=== PATIENT | female | born 1975 | race Caucasian/White ===

== ENCOUNTER 2016-06-22 15:16 | Emergency (ER) | payer BC, MEDICAID ==
[~2016-06-22] VITALS: Ht 152.4 cm; Wt 61.2 kg
[~2016-06-22 15:16] MED LIST: HYDR-4246 PO; PHEN-778 PO; SULF1TAB42 PO
[2016-06-22 15:18] VITALS: RESP 20; TEMP 99.1; Ht 152.4 cm; Wt 61.2 kg
[2016-06-22] MEDS ORDERED: RANI150T12 PO (15:37)
[2016-06-22] MEDS ORDERED: CALC-809 PO (15:37)
[2016-06-22 15:50] LABS: BLOOD, URINE NEGATIVE (NEGATIVE); COLOR,URINE YELLOW (YELLOW); LEUKOCYTE ESTERASE ,URINE NEGATIVE (NEGATIVE); NITRITE,URINE NEGATIVE (NEGATIVE); UROBILINOGEN,URINE 0.2 EU/DL (NORMAL)
[2016-06-22 16:00] LABS: BASOPHILS % (AUTO) 0.1 % (0-2); EOSINOPHILS # (AUTO) 0.2 T/MM3 (0-0.5); EOSINOPHILS % (AUTO) 2.1 % (0-4); HCT - HEMATOCRIT 35.8 % (36-46); HGB - HEMOGLOBIN 12.4 GM/DL (12-16); IMMATURE GRANULOCYTE # (AUTO) 0.05 T/MM3 (0.00-0.03); IMMATURE GRANULOCYTE % (AUTO) 0.5 % (0.0-0.5); LYMPHOCYTES # (AUTO) 1.6 T/MM3 (1-4.8); MEAN CORPUSCULAR HGB 35.5 UUG (26-34); MEAN CORPUSCULAR HGB CONC(MCHC 34.6 GM/DL (31-37); MEAN CORPUSCULAR VOLUME 102.6 UM3 (80-100); MEAN PLATELET VOLUME 9.5 UM3 (9.4-12.4); MONOCYTES # (AUTO) 0.8 T/MM3 (0-0.8); MONOCYTES % (AUTO) 8.4 % (0-9.0); NEUTROPHILS #(AUTO)-ABSOLUTE 6.5 T/MM3 (1.8-7.7); NEUTROPHILS % (AUTO) 70.9 % (33-66); RED BLOOD COUNT 3.49 M/MM3 (4.00-5.20); WBC - WHITE BLOOD COUNT 9.1 T/MM3 (4.5-11.0)
[2016-06-22 16:05] LABS: ALBUMIN 3.3 G/DL (3.5-5.0); ALKALINE PHOSPHATASE 165 U/L (38-126); ALT (SGPT) 26 U/L (9-52); ANION GAP 12 MEQ/L (5-15); AST (SGOT) 19 U/L (14-36); BUN/CREATININE RATIO 12 RATIO (6-26); CALCIUM 9.4 MG/DL (8.4-10.2); CHLORIDE 110 MEQ/L (98-107); CO2 - CARBON DIOXIDE 20 MEQ/L (22-30); CREATININE 0.5 MG/DL (0.7-1.2); GLOMERULAR FILTRATION RATE 136; GLUCOSE 105 MG/DL (65-110); POTASSIUM 3.9 MEQ/L (3.6-5); SODIUM 142 MEQ/L (134-144); TOTAL PROTEIN 6.5 G/DL (6.3-8.2)
--- NOTE | 2016-06-22 16:25 | NUR ---
PROVIDER DR BARRAGAN TO BEDSIDE TO DISCUSS POC
--- NOTE | 2016-06-22 16:39 | ERPDOC ---
Departure Disposition Decision Date: Jun 22, 2016 Disposition Decision Time: 16:46 Disposition: 01 DISCHARGED HOME, SELF-CARE Impression Impression Impression: Primary Impression: Additional Impression: Ocular migraine Severity: Moderate Condition: Improved Seen By: Physician only Referrals: ZOE PARDO MD (PCP) Patient Instructions: Ocular Migraine (ED) Problems/Meds/Labs Reviewed?: Yes Medications reviewed and manag: Yes Additional Instructions: Please go to labor and delivery to have a nonstress test completed at this time. Call for an appointment with your OB provider to be set up with in the next 72 hours. Please return if symptoms recur and you cannot get hold of your OB provider. Follow up care ordered?: Yes Mental Status: Alert, Oriented HPI - General Medical General Chief Complaint: Related Problems Stated Complaint: /NUMBNESS AND VISION ISSUES Time Seen by Provider: 15:37 HPI - General Medical Initial Comments 40-year-old female presents at 35-3/7 weeks gestation. Patient had left- sided tongue numbness and facial numbness which then went to her arm. This is the second time in her life that she has had this and both times were all she was . She has had an appointment with neurology, but did not realize that it was set for the third and missed it. She has had some resolution of symptoms on entering the ED, and at the time of the interview, symptoms had resolved. She has no headache, no fever or chills. Has noticed some swelling in her legs. No dysuria or urgency beyond normal for at this time. She's had no significant cramping or pain and no abnormal vaginal discharge. Allergies: Coded Allergies: Penicillins (Verified Allergy, Mild, ITCHING,RASH, 06/22/16) Past History Past Medical History Female: UTI, other Surgical History Reproductive/: other Family History Family History: Negative Vaccines Hx Influenza Vaccination: No Hx Pneumococcal Vaccination: No Social History Smoking Status: Never smoker Substance Use Type: does not use Record Review Pertinent history updated: Yes Review of Systems Constitutional Constitutional: weight gain, DENIES: chills, dizziness, fever, syncope, weakness, weight loss Female: see HPI : see HPI Musculoskeletal General: see HPI Neurological General: see HPI All other Systems All Other Systems: Reviewed and Negative Physical Exam General General Nourishment: well nourished, well developed, appears stated age, no acute distress General Body Habitus: well groomed Vitals and Pain First Documented Vital Signs Date Time Temp Pulse Resp B/P Pulse Ox O2 Delivery O2 Flow Rate FiO2 06/22/16 15:18 99.1 95 20 135/68 100 Room Air Weight: Kilograms: 61.200 Height (feet): 5 Height (inches): 0 Triage Pain Scale: Normal Exams: Head: Normocephalic w/o trauma Eyes: Pupils are PERRLA w/ EOMI, No scleral icterus, irritation, or foreign bodies noted Chest/Resp: Clear all cruz, with good airflow, and symmetry bilaterally CV: Regular rate and rhythm, without murmur or gallop, Pulses 2+ all extremities, capillary refill, <2 seconds all ext., no pedal edema noted Abdomen: Bowel sounds positive, soft, non-tender, non-distended, no hepatosplenomegaly, masses or bruits noted Neurologic: Patient is alert, and oriented, cranial nerves, motor/sensory/ cerebellar, exams w/o gross deficits, to observation Psychiatric: Patient exhibits, appropriate attention, emotion and affect Differential Diagnoses Considering: Encephalitis, Hypo/Hyperglycemia, Intracranial Hemorrhage, Meningitis, Metabolic, Poisoning/Accidental OD, Psychosis, Seizure, Other ( migraine, preeclampsia) Progress Results/Orders Orders Procedure Category Date Status Time Ua, Dip Wreflex LAB 06/22/16 Complete Microsc & Artist Model 15:37 Cbc W/Auto LAB 06/22/16 Complete Diff-Reflex Manual Cmp - Comprehensive LAB 06/22/16 Complete Metabolic Uric Acid LAB 06/22/16 Logged Lab Results Laboratory Tests Test 06/22/16 15:40 06/22/16 15:51 Urine Collection Type Voided-not cc-midstr Urine Color Yellow Urine Turbidity Clear Urine pH 6.5 Urine Specific [place] 1.025 Urine Protein Trace Urine Glucose (UA) Negative Urine Ketones Negative Urine Blood Negative Urine Nitrite Negative Urine Bilirubin Negative Urine Urobilinogen 0.2EU/DL Urine Leukocyte Esterase Negative Urinalysis Comment Microscopic not ind. White Blood Count 9.1T/MM3 Red Blood Count 3.49M/MM3 Hemoglobin 12.4GM/DL Hematocrit 35.8% Mean Corpuscular Volume 102.6UM3 Mean Corpuscular Hemoglobin 35.5UUG Mean Corpuscular Hemoglobin Concent 34.6GM/DL RDW Standard Deviation 47.2FL Platelet Count 232T/MM3 Mean Platelet Volume 9.5UM3 Immature Granulocyte % (Auto) 0.5% Neutrophils (%) (Auto) 70.9% Lymphocytes (%) (Auto) 18.0% Monocytes (%) (Auto) 8.4% Eosinophils (%) (Auto) 2.1% Basophils (%) (Auto) 0.1% Absolute Immature Granulocyte (auto 0.05T/MM3 Absolute Neutrophils (auto) 6.5T/MM3 Absolute Lymphocytes (auto) 1.6T/MM3 Absolute Monocytes (auto) 0.8T/MM3 Absolute Eosinophils (auto) 0.2T/MM3 Absolute Basophils (auto) 0.0T/MM3 Turbidity < 20 Sodium Level 142MEQ/L Potassium Level 3.9MEQ/L Chloride Level 110MEQ/L Carbon Dioxide Level 20MEQ/L Anion Gap 12MEQ/L Blood Urea Nitrogen 6.0MG/DL Creatinine 0.5MG/DL Glomerular Filtration Rate Calc 136 BUN/Creatinine Ratio 12RATIO Glucose Level 105MG/DL Calculated Osmolality 271MOSM/KG Calcium Level 9.4MG/DL Total Bilirubin 0.40MG/DL Icterus Index < 2 Aspartate Amino Transf (AST/SGOT) 19U/L Alanine Aminotransferase (ALT/SGPT) 26U/L Alkaline Phosphatase 165U/L Total Protein 6.5G/DL Albumin 3.3G/DL Globulin 3.2G/DL Albumin/Globulin Ratio 1.0RATIO Chemistry Specimen Hemolysis < 15 Progress Progress Patient's symptoms essentially resolved at the time she was seen, and had fully resolved within a few minutes. I called and spoke with Dr. Martinez, who is covering , we discussed patient's history and symptoms. We will both agreed that CT of the head was not necessary at this time. Preeclampsia was ruled out with normal blood pressures except for blood pressure right before discharge was 141 systolic, this was while she was up moving and getting ready to go. UA had trace protein, DTRs are 3+, platelets and liver enzymes are appropriate. Uric acid is pending at this time, but will resolved prior to discharge. I do think this was an atypical migraine. I spoke with Dr. Martinez, it turns out the patient missed her appointment with Dr. Edward yesterday. Patient is going to call to get an appointment either or Tuesday. She is being discharged to maternal for nonstress test. HEVER BARRAGAN MD Jun 22, 2016 16:38
--- NOTE | 2016-06-22 17:05 | NUR ---
[facility] MATERNAL CHILD NURSE TO BEDSIDE FOR NST
--- NOTE | 2016-06-22 17:41 | NUR ---
PAIN RELIEF MEASURE WARM RICE BAG PLACED ON PATIENT'S NECK
[2016-06-22 18:05] VITALS: BP 117/75; PULSE 96; O2SAT 100
--- NOTE | 2016-06-22 18:17 | NUR ---
NST US AND TOCO MONITORS APPLIED TO PT ABDOMEN FOR NST. MONITOR APPLIED AT 1712 AND REMOVED AT 1735. STRIP IS REACTIVE FHT 140 ACCELS NOTED, MODERATE VARIABILITY. CONTRACTIONS NOTED EVERY 2.5-4.5 MINUTES, PALPATE MILD, LASTING 50-[address] MCDONALD NOTIFIED BY ED OF REACTIVE STRIP.
== END 2016-06-22 18:05 | disposition home or self-care (01) ==
LOC: ED 15:16
DX: O26.893 Other specified pregnancy related conditions, third trimester (principal); G43.809 Other migraine, not intractable, without status migrainosus; Z3A.35 35 weeks gestation of pregnancy
CPT/HCPCS: 36415; 80053; 81003; 84550; 85025

== ENCOUNTER 2016-07-09 14:17 | Observation (INO) | payer BC ==
[~2016-07-09] VITALS: Ht 152.4 cm; Wt 64.0 kg
[~2016-07-09 14:17] MED LIST changes: +CALC-809 PO; -HYDR-4246 PO; -PHEN-778 PO; +RANI150T12 PO; -SULF1TAB42 PO
--- OUTSIDE RECORDS SUMMARY | 2016-07-09 14:25 | XMS REPORT | Continuity of Care Document ---
Author Author [facility] Organization [facility] Address Unknown Phone Unavailable Care Team Providers Care Space Controller Name Role Phone ZOE PARDO MD Primary Care Physician [phone] Insurance Providers Guarantor Luigi Carrillo Address [address] [place] [address] Email DENIED TO PORTAL Payer [facility] Community Plan Policy Number [id number] Subscriber's Name Luigi Carrillo Relationship 18 Self Effective Date 15 Expiration Date 15 Payer [facility] Policy Number [id number] Subscriber's Name Gino Carrillo Relationship 01 Spouse Group Number [id number] Chief Complaint and Reason for Visit Chief Complaint Related Problems Reason for Visit Ocular migraine Problems Active Problems Medical Problem Onset Date Status Viral illness Unknown Acute Past Problems Medical Problem Onset Date Ocular migraine Unknown Unknown Medications Current Home Medications Medication Dose Units Route Directions Days Qty Instructions Start Date Calcium Carbonate (Calcium) 500 Mg Tab.chew 500 Mg Oral As Needed 06/22/16 Ranitidine Hcl (Zantac) 150 Mg Tablet 150 Mg Oral Twice A Day Take 1 tablet, by mouth, 2 times a day. 06/22/16 Social History Social History Problem Response Recorded Date/Time Onset Date Status Hx Substance Use No 06/22/2016 3:28pm Not Applicable Not Applicable Hx Alcohol Use Y OCC 06/22/2016 3:28pm Not Applicable Not Applicable Has the pt used tobacco in the last 12 months No 02/20/2015 1:32pm Not Applicable Not Applicable Tobacco Usage none 03/02/2015 7:10pm Not Applicable Not Applicable Query Response Start Date Stop Date Smoking Status Never smoker Hospital Discharge Instructions No hospital discharge instructions. Plan of Care Discharge Date 06/22/16 6:05pm Disposition 01 DISCHARGED HOME, SELF-CARE Condition at Discharge Improved Instructions/Education Provided Ocular Migraine (ED) Prescriptions See Medication Section Referrals ZOE PARDO MD Address: [address] [place] [address] Additional Instructions/Education Please go to labor and delivery to have a nonstress test completed at this time. Call for an appointment with your OB provider to be set up with in the next 72 hours. Please return if symptoms recur and you cannot get hold of your OB provider. Functional Status No functional status results. Allergies, Adverse Reactions, Alerts Allergen Type Severity Reaction Status Last Updated Penicillin Allergy Mild ITCHING,RASH Active 06/22/16 Immunizations Query Response on File Recorded Date/Time Hx Influenza Vaccination No 02/20/15 1:32pm Hx Pneumococcal Vaccination No 02/20/15 1:32pm Hx Influenza Vaccination No 02/20/15 1:32pm Influenza Vaccine Hx NOT REC'D 06/22/16 3:28pm Vital Signs Acute Vital Signs Vital Response Date/Time Temperature (Fahrenheit) 99.1 deg F (96.8 - 99.1) 06/22/2016 3:18pm Temperature (Calculated Celsius) 37.41849 degrees C (36.0 - 37.3) 06/22/2016 3:18pm Pulse Rate (adult) 96 bpm (60 - 100) 06/22/2016 6:05pm Respiratory Rate 20 breaths/min (10 - 20) 06/22/2016 3:18pm O2 Sat by Pulse Oximetry 100 % (90 - 100) 06/22/2016 6:05pm Blood Pressure 117/75 mm Hg 06/22/2016 6:05pm Height (Feet) 5 feet 06/22/2016 3:18pm Height (Inches) 0 inches 06/22/2016 3:18pm Weight (Kilograms) 61.200 kg 06/22/2016 3:18pm Body Mass Index (BMI) 26.0 06/22/2016 3:18pm Results Laboratory Results Test Name Result Units Flags Reference Collection Date/Time Result Date/ Time Comments White Blood Count 9.1 T/MM3 4.5-11.0 06/22/2016 3:06/22/2016 4: 00pm Red Blood Count 3.49 M/MM3 L 4.00-5.20 06/22/2016 3:pm 06/22/2016 4: 00pm Hemoglobin 12.4 GM/DL 12-16 06/22/2016 3:06/22/2016 4:00pm Hematocrit 35.8 % L 36-46 06/22/2016 3:06/22/2016 4:00pm Mean Corpuscular Volume 102.6 UM3 H 80-100 06/22/2016 3:06/22/2016 4:00pm Mean Corpuscular Hemoglobin 35.5 UUG H 26-34 06/22/2016 3:pm 2016 4:00pm Mean Corpuscular Hemoglobin Concent 34.6 GM/DL 31-37 06/22/2016 3:pm 06/22/2016 4:00pm RDW Standard Deviation 47.2 FL 36.9-50.2 06/22/2016 3:06/22/2016 4 :00pm Platelet Count 232 T/MM3 130-400 06/22/2016 3:06/22/2016 4:00pm Mean Platelet Volume 9.5 UM3 9.4-12.4 06/22/2016 3:06/22/2016 4: 00pm Neutrophils (%) (Auto) 70.9 % H 33-66 06/22/2016 3:06/22/2016 4: 00pm Lymphocytes (%) (Auto) 18.0 % L 23-45 06/22/2016 3:06/22/2016 4: 00pm Monocytes (%) (Auto) 8.4 % 0-9.0 06/22/2016 3:06/22/2016 4:00pm Eosinophils (%) (Auto) 2.1 % 0-4 06/22/2016 3:06/22/2016 4:00pm Basophils (%) (Auto) 0.1 % 0-2 06/22/2016 3:06/22/2016 4:00pm Immature Granulocyte % (Auto) 0.5 % 0.0-0.5 06/22/2016 3:2016 4:00pm Absolute Neutrophils (auto) 6.5 T/MM3 1.8-7.7 06/22/2016 3:51pm 2016 4:00pm Absolute Lymphocytes (auto) 1.6 T/MM3 1-4.8 06/22/2016 3:51pm 2016 4:00pm Absolute Monocytes (auto) 0.8 T/MM3 0-0.8 06/22/2016 3:51pm 06/22/2016 4:00pm Absolute Eosinophils (auto) 0.2 T/MM3 0-0.5 06/22/2016 3:51pm 2016 4:00pm Absolute Basophils (auto) 0.0 T/MM3 0-0.2 06/22/2016 3:51pm 06/22/2016 4:00pm Absolute Immature Granulocyte (auto 0.05 T/MM3 H 0.00-0.03 06/22/2016 3: 51pm 06/22/2016 4:00pm Icterus Index < 2 0-7 06/22/2016 3:51pm 06/22/2016 4:05pm Chemistry Specimen Hemolysis < 15 0-25 06/22/2016 3:51pm 06/22/2016 4 :05pm 0-25: Specimen Exhibited No Hemolysis. Turbidity < 20 0-20 06/22/2016 3:51pm 06/22/2016 4:05pm Sodium Level 142 MEQ/L 134-144 06/22/2016 3:51pm 06/22/2016 4:05pm Potassium Level 3.9 MEQ/L 3.6-5 06/22/2016 3:51pm 06/22/2016 4:05pm Chloride Level 110 MEQ/L H 98-107 06/22/2016 3:pm 06/22/2016 4:05pm Carbon Dioxide Level 20 MEQ/L L 22-30 06/22/2016 3:51pm 06/22/2016 4: 05pm Anion Gap 12 MEQ/L 5-15 06/22/2016 3:51pm 06/22/2016 4:05pm Blood Urea Nitrogen 6.0 MG/DL L 7-17 06/22/2016 3:51pm 06/22/2016 4: 05pm Creatinine 0.5 MG/DL L 0.7-1.2 06/22/2016 3:51pm 06/22/2016 4:05pm BUN/Creatinine Ratio 12 RATIO 6-26 06/22/2016 3:51pm 06/22/2016 4:05pm Glomerular Filtration Rate Calc 136 06/22/2016 3:51pm 06/22/2016 4: 05pm Glucose Level 105 MG/DL 65-110 06/22/2016 3:51pm 06/22/2016 4:05pm Calculated Osmolality 271 MOSM/KG 261-280 06/22/2016 3:51pm 06/22/2016 4:05pm Calcium Level 9.4 MG/DL 8.4-10.2 06/22/2016 3:51pm 06/22/2016 4:05pm Total Bilirubin 0.40 MG/DL 0.20-1.30 06/22/2016 3:51pm 06/22/2016 4: 05pm Alkaline Phosphatase 165 U/L H 38-126 06/22/2016 3:51pm 06/22/2016 4: 05pm Total Protein 6.5 G/DL 6.3-8.2 06/22/2016 3:51pm 06/22/2016 4:05pm Albumin 3.3 G/DL L 3.5-5.0 06/22/2016 3:51pm 06/22/2016 4:05pm Globulin 3.2 G/DL 2.4-3.6 06/22/2016 3:51pm 06/22/2016 4:05pm Albumin/Globulin Ratio 1.0 RATIO L 1.1-2.2 06/22/2016 3:51pm 06/22/2016 4:05pm Aspartate Amino Transf (AST/SGOT) 19 U/L 14-36 06/22/2016 3:51pm 2016 4:05pm Alanine Aminotransferase (ALT/SGPT) 26 U/L 9-52 06/22/2016 3:51pm 06/22 4:05pm Uric Acid 4.6 MG/DL 2.5-7.5 06/22/2016 3:48pm 06/22/2016 4:46pm Urine Collection Type VOIDED-NOT CC-MIDSTR 06/22/2016 3:40pm 2016 3:50pm Urine Color YELLOW YELLOW 06/22/2016 3:40pm 06/22/2016 3:50pm Urine Turbidity CLEAR CLEAR 06/22/2016 3:40pm 06/22/2016 3:50pm Urine Specific [place] 1.025 1.015-1.025 06/22/2016 3:40pm 2016 3:50pm Urine pH 6.5 5.0-8.0 06/22/2016 3:40pm 06/22/2016 3:50pm Urine Leukocyte Esterase NEGATIVE NEGATIVE 06/22/2016 3:40pm 2016 3:50pm Urine Nitrite NEGATIVE NEGATIVE 06/22/2016 3:40pm 06/22/2016 3:50pm Urine Protein TRACE A NEGATIVE 06/22/2016 3:40pm 06/22/2016 3:50pm Urine Glucose (UA) NEGATIVE NEGATIVE 06/22/2016 3:40pm 06/22/2016 3: 50pm Urine Ketones NEGATIVE NEGATIVE 06/22/2016 3:40pm 06/22/2016 3:50pm Urine Urobilinogen 0.2 EU/DL NORMAL 06/22/2016 3:40pm 06/22/2016 3: 50pm Urine Bilirubin NEGATIVE NEGATIVE 06/22/2016 3:40pm 06/22/2016 3: 50pm Urine Blood NEGATIVE NEGATIVE 06/22/2016 3:40pm 06/22/2016 3:50pm Urinalysis Comment MICROSCOPIC NOT IND. 06/22/2016 3:40pm 2016 3:50pm Procedures No known history of procedures. Encounters Encounter Location Arrival/Admit Date Discharge/Depart Date Attending Provider Departed Emergency Room [facility] 06/22/16 3:16pm 06/22/16 6: 05pm HEVER BARRAGAN MD Recent Diagnosis
[2016-07-09 14:49] VITALS: Ht 152.4 cm; Wt 64.0 kg
[2016-07-09] MEDS ORDERED: CALC750T4 (14:55)
[2016-07-09 15:00] VITALS: BP 120/76; PULSE 96; RESP 18; TEMP 98; O2SAT 99
--- NOTE | 2016-07-09 17:43 | PNPDOC ---
Progress Note Date 07/09/16 Pt reports feeling well. Normotensive since arrival at [facility]. CBC, AST, ALT normal, alk phos elevated. Will dismiss to continue 24 hour urine collection at home. Reviewed PIDorie lee, emergency numbers. Q&A Follow-up at appt next week, sooner prn. GEORGE ROMERO MD Jul 09, 2016 17:43
[2016-07-09 18:14] LABS: HCT - HEMATOCRIT 34.5 % (36-46); HGB - HEMOGLOBIN 11.9 GM/DL (12-16); RED BLOOD COUNT 3.38 M/MM3 (4.00-5.20); WBC - WHITE BLOOD COUNT 8.8 T/MM3 (4.5-11.0)
[2016-07-09 18:15] LABS: BASOPHILS % (AUTO) 0.1 % (0-2); EOSINOPHILS # (AUTO) 0.2 T/MM3 (0-0.5); EOSINOPHILS % (AUTO) 1.8 % (0-4); IMMATURE GRANULOCYTE # (AUTO) 0.04 T/MM3 (0.00-0.03); IMMATURE GRANULOCYTE % (AUTO) 0.5 % (0.0-0.5); LYMPHOCYTES # (AUTO) 1.7 T/MM3 (1-4.8); LYMPHOCYTES % (AUTO) 18.9 % (23-45); MEAN CORPUSCULAR HGB 35.2 UUG (26-34); MEAN CORPUSCULAR HGB CONC(MCHC 34.5 GM/DL (31-37); MEAN CORPUSCULAR VOLUME 102.2 UM3 (80-100); MEAN PLATELET VOLUME 9.8 UM3 (9.4-12.4); MONOCYTES # (AUTO) 0.7 T/MM3 (0-0.8); MONOCYTES % (AUTO) 8.2 % (0-9.0); NEUTROPHILS #(AUTO)-ABSOLUTE 6.2 T/MM3 (1.8-7.7); NEUTROPHILS % (AUTO) 70.5 % (33-66)
[2016-07-09 18:16] LABS: ANION GAP 11 MEQ/L (5-15); CHLORIDE 109 MEQ/L (98-107); CO2 - CARBON DIOXIDE 20 MEQ/L (22-30); POTASSIUM 3.8 MEQ/L (3.6-5); SODIUM 140 MEQ/L (134-144)
[2016-07-09 18:17] LABS: ALBUMIN 3.2 G/DL (3.5-5.0); ALKALINE PHOSPHATASE 199 U/L (38-126); ALT (SGPT) 30 U/L (9-52); AST (SGOT) 26 U/L (14-36); BUN/CREATININE RATIO 18 RATIO (6-26); CALCIUM 9.2 MG/DL (8.4-10.2); CREATININE 0.5 MG/DL (0.7-1.2); GLOMERULAR FILTRATION RATE 136; GLUCOSE 89 MG/DL (65-110); TOTAL PROTEIN 6.4 G/DL (6.3-8.2)
--- NOTE | 2016-07-09 18:44 | NUR ---
OUTPATIENT DISCHARGE: VSS. Pt denies pain but feeling abdm pressure with cx. Pt denies CARLISLE, visual changes or RUQ pain. Dr Edward reviews BP and labwork. Orders given to DC pt to home, continue 24hr urine collection. RN discussed and provided home instructions and 24hr urine collection. Pt verbalizes understanding to all teaching. RN escorts pt to admissions to complete paperwork.
[2016-07-10 16:09] LABS: CREATININE 0.5 MG/DL (0.7-1.2); GLOMERULAR FILTRATION RATE 136; PATIENT WEIGHT,URINE 64 KG
== END 2016-07-09 18:44 | disposition home or self-care (01) ==
LOC: MC 14:17
PROVIDERS: ADMIT Obstetrics & Gynecology; ATTEND Obstetrics & Gynecology
DX: O26.893 Other specified pregnancy related conditions, third trimester (principal); R03.0 Elevated blood-pressure reading, without diagnosis of hypertension; O09.513 Supervision of elderly primigravida, third trimester; O99.343 Other mental disorders complicating pregnancy, third trimester; F41.8 Other specified anxiety disorders; O09.893 Supervision of other high risk pregnancies, third trimester; Z3A.37 37 weeks gestation of pregnancy
CPT/HCPCS: 36415; 80053; 82575; 84156; 85025; 99218

== ENCOUNTER 2016-07-26 06:30 | Inpatient (IN) | payer BC ==
[~2016-07-26] VITALS: Ht 152.4 cm; Wt 64.5 kg
[~2016-07-26 06:30] MED LIST changes: -CALC-809 PO; +CALC750T4
--- OUTSIDE RECORDS SUMMARY | 2016-07-26 06:42 | XMS REPORT | Continuity of Care Document ---
Author Author [facility] Organization [facility] Address Unknown Phone Unavailable Support Name Relationship Address Phone GEORGE EDWARD MD Caregiver [address] [place] [address] [address] [place] [address] Unavailable GEORGE EDWARD MD Caregiver [address] [place] [address] [address] [place] [address] Unavailable GINO OGDEN Next Of Kin [address] [place], [place] [id number] Insurance Providers Guarantor Joana Ogden Address [address] [place] [address] Email DENIED/06/22/16 [facility] Policy Number [id number] Subscriber's Name Gino Ogden Relationship 01 Spouse Group Number [id number] Advance Directives Directive Response Recorded Date/Time Ordered Resuscitation Status Full Code 07/09/16 2:39pm Resuscitation Documents on File No 07/09/16 2:52pm DPOA for Healthcare Only No 07/09/16 2:52pm Living Will No 07/09/16 2:52pm Problems Active Problems Medical Problem Onset Date Status Viral illness Unknown Acute Past Problems Medical Problem Onset Date Ocular migraine Unknown Unknown Medications Current Home Medications Medication Dose Units Route Directions Days Qty Instructions Start Date Calcium Carbonate (Tums) 300 Mg Tab.chew 07/09/16 Ranitidine Hcl (Zantac) 150 Mg Tablet 150 Mg Oral Twice A Day Take 1 tablet, by mouth, 2 times a day. 06/22/16 Past Home Medications Medication Directions Ordered Status Calcium Carbonate (Calcium) 500 Mg Tab.chew, 500 Mg Oral As Needed 06/22/16 Discontinued Social History Social History Problem Response Recorded Date/Time Onset Date Status Reason for Hospitalization elevated blood pressue in office 07/09/2016 6: 19pm Not Applicable Not Applicable Hx Substance Use No 07/09/2016 3:00pm Not Applicable Not Applicable Hx Alcohol Use Y OCC 06/22/2016 3:28pm Not Applicable Not Applicable Has the pt used tobacco in the last 12 months No 07/09/2016 3:00pm Not Applicable Not Applicable Tobacco Usage none 03/02/2015 7:10pm Not Applicable Not Applicable Query Response Start Date Stop Date Smoking Status Former smoker Hospital Discharge Instructions Instructions: Care Instructions: I was in the hospital because (patient own words): to monitor blood pressure and check if I have preeclampsia Discharge Diet: Regular Discharge Activity: see instructions Follow Up Appointments: Keep next appointment with Dr. Edward as scheduled. Pending Lab / Results: No Pending Lab Patient Instructions: see instructions Expected Signs/Symptoms: see instructions Notify Physician If: see instructions During Business Hours:: Please call the physician's office at [phone] After Business Hours:: Please call [phone] and have the drill sharpener operator page the physician. Pain Management/Treatment: see instructions Wound/Incision Care: n/a Durable Medical Equipment: see instructions Condition at time of discharge: Good Plan of Care Discharge Date 07/09/16 6:44pm Disposition 01 DISCHARGED HOME, SELF-CARE Instructions/Education Provided [facility] Prescriptions See Medication Section Additional Instructions/Education Return 24hour urine collection to [facility], Lab Dept, at 1:20pm on 07/10/16 Care Plan and Goals See Discharge Instructions Section Functional Status Query Response Date Recorded Ability to complete ADL's impeded by No change July 09, 2016 2:52pm Allergies, Adverse Reactions, Alerts Allergen Type Severity Reaction Status Last Updated Penicillin Allergy Mild ITCHING,RASH Active 07/09/16 Immunizations Query Response on File Recorded Date/Time Hx Influenza Vaccination No 02/20/15 1:32pm Hx Pneumococcal Vaccination No 02/20/15 1:32pm Hx Influenza Vaccination No 02/20/15 1:32pm Influenza Vaccine Hx declined 07/09/16 3:00pm Tdap Vaccine Hx declined 07/09/16 3:00pm Vital Signs Acute Vital Signs Vital Response Date/Time Temperature (Fahrenheit) 98.0 deg F (96.8 - 99.1) 07/09/2016 3:00pm Temperature (Calculated Celsius) 36.97555 degrees C (36.0 - 37.3) 07/09/2016 3:00pm Pulse Rate (adult) 96 bpm (60 - 100) 07/09/2016 3:00pm Respiratory Rate 18 breaths/min (10 - 20) 07/09/2016 3:00pm O2 Sat by Pulse Oximetry 99 % (90 - 100) 07/09/2016 3:00pm Blood Pressure 120/76 mm Hg 07/09/2016 3:00pm Blood Pressure Source Automatic Cuff 07/09/2016 3:00pm Height (Feet) 5 feet 07/09/2016 2:57pm Height (Inches) 0.00 inches 07/09/2016 2:57pm Weight (Kilograms) 64.000 kg 07/09/2016 2:49pm Body Mass Index (BMI) 27.6 07/09/2016 2:49pm Results Laboratory Results Test Name Result Units Flags Reference Collection Date/Time Result Date/ Time Comments Uric Acid 4.6 MG/DL 2.5-7.5 06/22/2016 3:48pm 06/22/2016 4:46pm Urine Collection Type VOIDED-NOT CC-MIDSTR 06/22/2016 3:40pm 2016 3:50pm Urine Color YELLOW YELLOW 06/22/2016 3:40pm 06/22/2016 3:50pm Urine Turbidity CLEAR CLEAR 06/22/2016 3:40pm 06/22/2016 3:50pm Urine Specific [place] 1.025 1.015-1.025 06/22/2016 3:40pm 2016 3:50pm Urine [...] MICROSCOPIC NOT IND. 06/22/2016 3:40pm 2016 3:50pm White Blood Count 8.8 T/MM3 4.5-11.0 07/09/2016 3:07/09/2016 6: 16pm Red Blood Count 3.38 M/MM3 L 4.00-5.20 07/09/2016 3:07/09/2016 6: 16pm Hemoglobin 11.9 GM/DL L 12-16 07/09/2016 3:07/09/2016 6:16pm Hematocrit 34.5 % L 36-46 07/09/2016 3:07/09/2016 6:16pm Mean Corpuscular Volume 102.2 UM3 H 80-100 07/09/2016 3:07/09/2016 6:16pm Mean Corpuscular Hemoglobin 35.2 UUG H 26-34 07/09/2016 3:2016 6:16pm Mean Corpuscular Hemoglobin Concent 34.5 GM/DL 31-37 07/09/2016 3:07/09/2016 6:16pm RDW Standard Deviation 45.3 FL 36.9-50.2 07/09/2016 3:07/09/2016 6 :16pm Platelet Count 240 T/MM3 130-400 07/09/2016 3:07/09/2016 6:16pm Mean Platelet Volume 9.8 UM3 9.4-12.4 07/09/2016 3:07/09/2016 6: 16pm Neutrophils (%) (Auto) 70.5 % H 33-66 07/09/2016 3:07/09/2016 6: 16pm Lymphocytes (%) (Auto) 18.9 % L 23-45 07/09/2016 3:07/09/2016 6: 16pm Monocytes (%) (Auto) 8.2 % 0-9.0 07/09/2016 3:07/09/2016 6:16pm Eosinophils (%) (Auto) 1.8 % 0-4 07/09/2016 3:07/09/2016 6:16pm Basophils (%) (Auto) 0.1 % 0-2 07/09/2016 3:07/09/2016 6:16pm Immature Granulocyte % (Auto) 0.5 % 0.0-0.5 07/09/2016 3:12p2016 6:16pm Absolute Neutrophils (auto) 6.2 T/MM3 1.8-7.7 07/09/2016 3:2016 6:16pm Absolute Lymphocytes (auto) 1.7 T/MM3 1-4.8 07/09/2016 3:2016 6:16pm Absolute Monocytes (auto) 0.7 T/MM3 0-0.8 07/09/2016 3:07/09/2016 6:16pm Absolute Eosinophils (auto) 0.2 T/MM3 0-0.5 07/09/2016 3:2016 6:16pm Absolute Basophils (auto) 0.0 T/MM3 0-0.2 07/09/2016 3:07/09/2016 6:16pm Absolute Immature Granulocyte (auto 0.04 T/MM3 H 0.00-0.03 07/09/2016 3: 12p07/09/2016 6:16pm Icterus Index < 2 0-7 07/09/2016 3:16pm 07/09/2016 6:17pm Chemistry Specimen Hemolysis < 15 0-25 07/09/2016 3:16pm 07/09/2016 6 :17pm 0-25: Specimen Exhibited No Hemolysis. Turbidity < 20 0-20 07/09/2016 3:16pm 07/09/2016 6:17pm Sodium Level 140 MEQ/L 134-144 07/09/2016 3:1607/09/2016 6:17pm Potassium Level 3.8 MEQ/L 3.6-5 07/09/2016 3:1607/09/2016 6:17pm Chloride Level 109 MEQ/L H 98-107 07/09/2016 3:16pm 07/09/2016 6:17pm Carbon Dioxide Level 20 MEQ/L L 22-30 07/09/2016 3:pm 07/09/2016 6: 17pm Anion Gap 11 MEQ/L 5-15 07/09/2016 3:16pm 07/09/2016 6:16pm Blood Urea Nitrogen 9.0 MG/DL 7-17 07/09/2016 3:07/09/2016 6:17pm Creatinine 0.5 MG/DL L 0.7-1.2 07/09/2016 3:16pm 07/09/2016 6:17pm BUN/Creatinine Ratio 18 RATIO 6-26 07/09/2016 3:16pm 07/09/2016 6:17pm Glomerular Filtration Rate Calc 136 07/09/2016 3:16pm 07/09/2016 6: 17pm Glucose Level 89 MG/DL 65-110 07/09/2016 3:16pm 07/09/2016 6:17pm Calculated Osmolality 267 MOSM/KG 261-280 07/09/2016 3:16pm 07/09/2016 6:17pm Calcium Level 9.2 MG/DL 8.4-10.2 07/09/2016 3:16pm 07/09/2016 6:17pm Total Bilirubin 0.60 MG/DL 0.20-1.30 07/09/2016 3:16pm 07/09/2016 6: 17pm Alkaline Phosphatase 199 U/L H 38-126 07/09/2016 3:16pm 07/09/2016 6: 17pm Total Protein 6.4 G/DL 6.3-8.2 07/09/2016 3:16pm 07/09/2016 6:17pm Albumin 3.2 G/DL L 3.5-5.0 07/09/2016 3:16pm 07/09/2016 6:17pm Globulin 3.2 G/DL 2.4-3.6 07/09/2016 3:16pm 07/09/2016 6:17pm Albumin/Globulin Ratio 1.0 RATIO L 1.1-2.2 07/09/2016 3:16pm 07/09/2016 6:17pm Aspartate Amino Transf (AST/SGOT) 26 U/L 14-36 07/09/2016 3:16pm 2016 6:17pm Alanine Aminotransferase (ALT/SGPT) 30 U/L 9-52 07/09/2016 3:16pm 07/09 6:17pm Procedures Procedure Status Date Provider(s) Routine venipuncture Completed 06/22/16 Comprehen metabolic panel Completed 06/22/16 Urinalysis auto w/o scope Completed 06/22/16 Assay of blood/uric acid Completed 06/22/16 Complete cbc w/auto diff wbc Completed 06/22/16 Emergency dept visit Completed 06/22/16 Encounters Encounter Location Arrival/Admit Date Discharge/Depart Date Attending Provider Discharged Inpatient (obs) [facility] 07/09/16 2:17pm 07/09/16 6: 44pm GEORGE EDWARD MD Departed Emergency Room [facility] 06/22/16 3:16pm 06/22/16 6: 05pm HEVER BARRAGAN MD
[2016-07-26] MEDS ORDERED: LIDOCAINE 1% (10mg/ml) 2ml SDV ID PRN (06:45)
[2016-07-26] MEDS ORDERED: CALCIUM CARBONATE 500mg Chewable TAB PO PRN ×2 (06:45→11:15)
[2016-07-26] MEDS ORDERED: MAG-AL + SIM LIQUID 30 ML UDC PO PRN ×2 (06:45→11:15)
[2016-07-26] MEDS ORDERED: ACETAMINOPHEN 500 MG TABLET PO PRN ×2 (06:45→11:15)
[2016-07-26 06:47] VITALS: BP 142/95; PULSE 96; RESP 20; TEMP 98.3; O2SAT 99
[2016-07-26] MEDS: LR 1,000 ML IV PRN ×2 (06:58→09:42)
[2016-07-26] MEDS ORDERED: D5LR 1,000 ML IV PRN (07:00)
[2016-07-26] MEDS ORDERED: OXYTOCIN 30 UNIT in D5LR 500 ML ONE (07:00)
[2016-07-26 07:03] LABS: HCT - HEMATOCRIT 36.6 % (36-46); MEAN CORPUSCULAR HGB 35.3 UUG (26-34); MEAN CORPUSCULAR HGB CONC(MCHC 35.5 GM/DL (31-37); MEAN CORPUSCULAR VOLUME 99.5 UM3 (80-100); MEAN PLATELET VOLUME 10.5 UM3 (9.4-12.4); RED BLOOD COUNT 3.68 M/MM3 (4.00-5.20); WBC - WHITE BLOOD COUNT 11.6 T/MM3 (4.5-11.0)
[2016-07-26 08:07] LABS: ALBUMIN 3.9 G/DL (3.5-5.0); ALBUMIN/GLOBULIN RATIO 1.3 RATIO (1.1-2.2); ALKALINE PHOSPHATASE 245 U/L (38-126); ALT (SGPT) 20 U/L (9-52); ANION GAP 11 MEQ/L (5-15); AST (SGOT) 22 U/L (14-36); BUN/CREATININE RATIO 18 RATIO (6-26); CALCIUM 9.8 MG/DL (8.4-10.2); CHLORIDE 108 MEQ/L (98-107); CO2 - CARBON DIOXIDE 21 MEQ/L (22-30); CREATININE 0.6 MG/DL (0.7-1.2); GLOMERULAR FILTRATION RATE 110; GLUCOSE 101 MG/DL (65-110); POTASSIUM 4.3 MEQ/L (3.6-5); SODIUM 140 MEQ/L (134-144); TOTAL PROTEIN 6.8 G/DL (6.3-8.2)
[2016-07-26] MEDS ORDERED: PHENYLEPHRINE 10mg/ml INJECTION ONE (09:35)
[2016-07-26] MEDS ORDERED: EPHEDRINE SULFATE 50mg/ml INJECTION ONE (09:35)
[2016-07-26] MEDS ORDERED: SALINE FLUSH 10ml SYRINGE ONE (09:35)
--- NOTE | 2016-07-26 09:50 | ANESPREOP ---
Anesthesia Record Date and Time DATE: 07/26/16 TIME: 09:46 Proposed Surgical Procedure SAB NPO since: mn Allergies: Coded Allergies: Penicillins (Verified Allergy, Mild, ITCHING,RASH, 07/09/16) Ht/Wt/BMI Height: 5 ' 0.00 " Weight: 64.500 kg BMI: kg/m2 Vital Signs Date Time Temp Pulse Resp B/P Pulse Ox O2 Delivery O2 Flow Rate FiO2 07/26/16 06:47 98.3 96 20 142/95 99 Room Air Medications Inpatient Medications Current Medications Medications (Trade) Dose Ordered Sig/Renetta Start Time Stop Time Status Last Admin Dose Admin Lidocaine HCl 0.2 mg 0.2 mg PRN PRN 07/26/16 06:45 Lactated Ringer's (Lactated Ringers) 1,000 ml @ 0 mls/hr Q0M PRN 07/26/16 06:39 07/26/16 09:42 0 MLS/HR Acetaminophen (Tylenol Extra Strength) 1-2 TABS = 500-1,000 MG Q4H PRN 07/26/16 06:45 Al Hydroxide/Mg Hydroxide (Maalox) 30 ml Q4H PRN 07/26/16 06:45 Calcium Carbonate 1-2 TABS Q2H PRN 07/26/16 06:45 Dextrose/Lactated Ringer's (D5lr) 1,000 ml @ 0 mls/hr Q0M PRN 07/26/16 07:00 Calcium Carbonate (Tums) 300 Mg Tab.chew, (Reported) Ranitidine HCl (Zantac) 150 Mg Tablet, 150 MG PO BID, (Reported) Take 1 tablet, by mouth, 2 times a day. Currently on Beta Scarlet: No Medical/Surgical History Anesthesia PMH: Reports: *Angina, Denies: *Diabetes, Anesthesia Reactions, Cancer, Glaucoma, Malignant Hyperthermia, Renal Disease Smoking Status: Never smoker Use Chewing Tobacco?: No Second Hand Exposure: No Substance Use Type: does not use Alcohol Intake: none Past Surgical History Orthopedic Surgeries: Abdominal Surgeries: Genitourinary Surgeries: Yes - BLADDER SURGERY 02/21 Cardiac Surgeries: Endocrine Surgeries: Reproductive Surgeries: Neurological Surgeries: Ear Surgeries: Nose Surgeries: Throat Surgeries: Other Surgeries: Yes - LEFT AXILLAE LYMPHNODE REMOVED Anesthesia Adverse Reactions: FOUND none Family Hx of Anesthesia Advers: none Hx of Motion Sickness: No Pertinent Findings Laboratory Tests 07/26/16 06:53 07/26/16 06:57 Physical Exam Respiratory: Lungs clear Cardiovascular: FOUND Regular rate, rhythm Airway Assessment Mallampati Score: II TMD: 3 Fingerbreadths Neck Extension: Good Overall Assessment: No Airway Concerns ASA: 2 Plan Regional: Spinal Discussion Discussed risks/options/alternatives of anesthesia and questions answered. Patient consents. Nursing pain assessment noted. Attestation Statement Prior to the delivery of any anesthetic medication, I examined the patient, developed the plan, obtained the patient's consent and discussed the risk and benefits of the procedure with the patient/guardian. Additional Information Surgeon request SAB to assist with labor and pain. BAL MORALES SUPERVISOR TITLE July 26, 2016 09:50
[2016-07-26] MEDS ORDERED: OXYTOCIN 30 UNIT in D5W 500 ML IV ONE ×4 (11:04)
[2016-07-26] MEDS ORDERED: DiphenhydrAMINE 25 MG CAPSULE PO PRN (11:15)
[2016-07-26] MEDS ORDERED: PHENYLEPHRINE RECTAL SUPPOSITORY RECTALLY PRN (11:15)
[2016-07-26] MEDS ORDERED: TETANUS,DIPHTH,a PERTUS (Tdap) 0.5 ML VIAL IM ONE (11:15)
[2016-07-26] MEDS ORDERED: MILK OF MAGNESIA 30 ML SUSP PO PRN (11:15)
[2016-07-26] MEDS ORDERED: HYDROCORTISONE 2.5% CREAM 30 GM RECTALLY PRN (11:15)
[2016-07-26] MEDS ORDERED: HYDROCODONE/APAP 5 mg/325 mg TABLET PO PRN (11:15)
--- NOTE | 2016-07-26 11:48 | LDNF ---
DATE 07/26/2016 Mrs. Ogden was scheduled for induction of labor today, however, she presented in active labor. She progressed well and began to push at the complete and +1 presentation. She pushed very poorly. Despite coaching, she had a difficult time with effort. Baby developed deep variable decelerations. After about an hour and a half of pushing, I recommended an intrathecal pain control to see if that would help her. That was done and we stopped pushing for about half an hour. She began pushing again, not really with much better effort. The variable decelerations became more prolonged and I recommended we apply the vacuum extractor. We applied the vacuum between contractions without difficulty. Over the course of three contractions, she pushed and I pulled with the vacuum, delivering the head in the OA presentation with some asynclitism. With two further pushes, baby was delivered in total then bulb suctioned and placed on mother's abdomen. After about two minutes, the cord was doubly clamped, it was cut by the baby's father Gino. This is a liveborn male with Apgars of 7/9/9, weighing 7 pounds, 4.2 ounces. The placenta subsequently delivered spontaneously intact. It was meconium stained but otherwise normal in appearance. There was a partial third degree midline laceration. The sphincter capsule anteriorly was just torn through; this was repaired with two [id number] sutures of 2-0 chromic. The remainder of the laceration was repaired in the usual fashion with a 2-0 Vicryl. I then drained her bladder with a sterile in-and-out catheter and performed a rectal exam. The mucosa was intact as was the sphincter. Total blood loss was approximately 300 mL. At the time of this dictation, mother and baby are doing well. [facility]
[2016-07-26] MEDS: IBUPROFEN 800 MG TABLET PO SCH ×2 (12:51→21:01)
[2016-07-26 13:45] VITALS: BP 139/78; PULSE 87; RESP 18; TEMP 97.8; O2SAT 99
[2016-07-26 14:45] VITALS: BP 140/85; PULSE 100; RESP 16; TEMP 97.9; O2SAT 99
--- NOTE | 2016-07-26 15:26 | NUR ---
Shift Summary Vag delivery this a.m. Small-mod timi licona. FF at umb. Up to BR and voids this afternoon. Took Ibuprofen for pain control. Informed pt of baby's blood, O positive and she is O negative. Would like to give her Rhophylac. Pt refuses. States she is not planning to get again. Phone report to Dr Edward of refusal of Rhophylac. Will cancel lab.
[2016-07-26 17:09] VITALS: BP 124/71; PULSE 94; RESP 16; TEMP 98.2; O2SAT 97
--- NOTE | 2016-07-26 19:30 | NUR ---
refused tdap patient refused tdap injection.
--- NOTE | 2016-07-26 23:28 | NUR ---
Chart Check 24 hour chart check completed
[2016-07-27 02:03] VITALS: BP 137/81; PULSE 114; RESP 18; TEMP 99.4; O2SAT 97
[2016-07-27 02:15] VITALS: TEMP 99.7
--- NOTE | 2016-07-27 02:15 | NUR ---
status patient reported feeling shaky a couple of hours ago. patient reported she is very tired and in pain and wondered if that could be it or if she is "getting an infection." discussed aches and hormones and possibility of temperature. discussed ibuprofen administration prior and if she got pain relief, patient reported she did not take it prior and had it at bedside and "just hasn't taken it yet." patient reports she was in "a lot of pain an hour ago" when she felt shaky but did not take ibuprofen then and then "pain got better." temperature obtained with scheduled vitals, temp 99.4 orally. instructed patient to take medication at this time, patient did so. patient just got done and is holding and covered up in blanket sitting on couch. patient then back to bed and she felt shaky again, temperature obtained, 99.7 orally. patient then stated she felt that the shakes went away, denied feeling hot or cold, rated pain at a 3/10. instructed patient to call if she felt bad again or with other complaints. offered to take to nursery so she could rest and patient would like to wait and see if infant will settle down and sleep. will continue to monitor.
[2016-07-27] MEDS: IBUPROFEN 800 MG TABLET PO SCH ×3 (02:26→16:44)
--- NOTE | 2016-07-27 02:43 | NUR ---
shift summary VSS (see previous note), fundus firm, lochia scant. patient performing all cares for self and . patient up independently in room, has showered, iv locked, tolerating po. has denied other needs or complaints beside feeling shaky before. will continue to monitor and educate.
[2016-07-27 07:42] VITALS: BP 122/79; PULSE 95; RESP 16; TEMP 98.4
--- NOTE | 2016-07-27 08:08 | PNPDOC ---
Progress Note PPD1 Rubella: Immune GBS: Negative Blood Type:B neg Subjective 07/27/16 Lochia: Moderate Pain: Controlled Voiding: Voiding Nausea and Vomiting: No Nausea/Vomiting Objective VSS AF Vital Signs Date Time Temp Pulse Resp B/P Pulse Ox O2 Delivery O2 Flow Rate FiO2 07/27/16 07:42 98.4 95 16 122/79 07/27/16 02:03 97 Room Air General: Sleeping Assessment , VAVD Plan Routine Care, Discharge Home (patient sleeping. ) FADI TERRAZAS COPY CUTTER July 27, 2016 08:08
[2016-07-27] MEDS ORDERED: DOCUSATE CALCIUM 240 MG CAPSULE PO SCH (09:00)
[2016-07-27] MEDS ORDERED: HYDR-4246 PO (12:19)
[2016-07-27] MEDS ORDERED: IBUP-1547 PO (12:19)
[2016-07-27] MEDS ORDERED: DOCU240C40 PO (12:19)
[2016-07-27 16:46] VITALS: BP 124/78; PULSE 96; RESP 16; TEMP 98.7; O2SAT 97
== END 2016-07-27 19:15 | disposition home or self-care (01) | DRG 775 ==
LOC: MC 06:30
PROVIDERS: ADMIT Obstetrics & Gynecology; ATTEND Obstetrics & Gynecology
PROC: 10D07Z6 Extraction of Products of Conception, Vacuum, Via Natural or Artificial Opening (ICD-10-PCS; principal; 2016-07-26)
PROC: 0DQR0ZZ Repair Anal Sphincter, Open Approach (ICD-10-PCS; 2016-07-26)
DX: O76 Abnormality in fetal heart rate and rhythm complicating labor and delivery (principal); O70.20 Third degree perineal laceration during delivery, unspecified; O63.1 Prolonged second stage (of labor); O77.0 Labor and delivery complicated by meconium in amniotic fluid; Z3A.40 40 weeks gestation of pregnancy; Z37.0 Single live birth
CPT/HCPCS: 80053; 82248; 85027; 86900; 86901